=== PATIENT | female | born 1965 | race Caucasian/White ===

== ENCOUNTER 2017-12-08 07:19 | Day surgery (SDC) | payer BC ==
[~2017-12-08 07:19] MED LIST: Bupivacaine 0.5% 30 ML SDV ONE; Heparin Sodium 100 Units/ML 3 ML Syringe ONE; Iopamidol 408 MG/ML 50 ML SDV ONE; Lactated Ringers 1,000 ML IV SCH; Lidocaine 1% 20 ML MDV ONE; Sodium Chloride 0.9% 10 ML Syringe FLUSH PRN; Sodium Chloride 0.9% 2.5 ML Syringe FLUSH PRN; ceFAZolin 2 GM in Premix Bag 1 BAG IV ONE
[2017-12-08] MEDS ORDERED: Midazolam 1 MG/ML 2 ML SDV ONE (07:27)
[2017-12-08] MEDS ORDERED: fentaNYL 100 MCG/2 ML SDV ONE (07:27)
[2017-12-08] MEDS ORDERED: Propofol 200 MG/20 ML SDV ONE (07:28)
[2017-12-08] MEDS ORDERED: Ondansetron 4 MG/2 ML SDV ONE (07:29)
[2017-12-08] MEDS ORDERED: Lidocaine 1% 20 ML MDV ONE (07:38)
--- NOTE | 2017-12-08 07:47 | PCM.PREANE ---
Preanesthetic Assessment - Anesthesia/Transfusion/Family Hx Anesthesia History: Prior Anesthesia Without Reaction Family History of Anesthesia Reaction: No Transfusion History: No Prior Transfusion(s) - Review of Systems General: No Symptoms Pulmonary: No Symptoms Cardiovascular: No Symptoms Gastrointestinal: No Symptoms Neurological: No Symptoms Other: Reports: None - Physical Assessment Height: 1.6 m Weight: 85.275 kg ASA Class: 2 Mental Status: Alert & Oriented x3 Airway Class: Mallampati = 2 Dentition: Reports: Normal Dentition (multiple veneers upper front), [place](s) ( multiple upper and lower (back side)) Thyro-Mental Finger Breadths: 2 Mouth Opening Finger Breadths: 3 ROM/Head Extension: Full Lungs: Clear to Auscultation, Normal Respiratory Effort Cardiovascular: Regular Rate, Regular Rhythm - Allergies Allergies/Adverse Reactions: Allergies Allergy/AdvReac Type Severity Reaction Status Date / Time azithromycin [From Zithromax] Allergy Dizziness Verified 12/03/17 08:26 - Blood Blood Available: No - Anesthesia Plan Pre-Op Medication Ordered: None - Acknowledgements Anesthesia Type Planned: General Anesthesia Pt an Appropriate Candidate for the Planned Anesthesia: Yes Alternatives and Risks of Anesthesia Discussed w Pt/Guardian: Yes Pt/Guardian Understands and Agrees with Anesthesia Plan: Yes PreAnesthesia Questionnaire HEENT History: Reports: Other (See Below) Other HEENT History: wears glasses/contacts Cardiovascular History: Reports: Hypertension Gastrointestinal History: Reports: GERD Genitourinary History: Reports: None Psychiatric History: Reports: Depression Endocrine/Metabolic History: Reports: Obesity/BMI 30+ Oncologic (Cancer) History: Reports: Breast - Past Surgical History Head Surgeries/Procedures: Reports: None Female Surgical History: Reports: Breast Biopsy Other Female Surgeries/Procedures: right breast lumpectomy with axillary lymph node biopsy (one node positive) - SUBSTANCE USE Smoking Status *Q: Never Smoker Recreational Drug Use History: No - HOME MEDS Home Medications: Home Meds Famotidine 40 mg PO BEDTIME 12/03/17 [History] Fluticasone Propionate [Flonase Allergy Relief] 1 spray NASBOTH ASDIRECTED PRN 12/03/17 [History] Ibuprofen 1 tab PO ASDIRECTED PRN 12/03/17 [History] Losartan Potassium 50 mg PO DAILY 12/03/17 [History] Multivitamin [Multivitamins] 1 tab PO DAILY 12/03/17 [History] [place]-3/DHA/Epa/Fish Oil [[place]-3 Fish Oil Softgel] 1 tab PO DAILY 12/03/17 [ History] - CURRENT (IN HOUSE) MEDS Current Meds: Current Medications Lactated Ringer's (Ringers, Lactated) 1,000 mls @ 125 mls/hr IV ASDIRECTED KATELIN Sodium Chloride (Saline Flush) 10 ml FLUSH ASDIRECTED PRN PRN Reason: Keep Vein Open Sodium Chloride (Saline Flush) 2.5 ml FLUSH ASDIRECTED PRN PRN Reason: Keep Vein Open Discontinued Medications Bupivacaine HCl (Marcaine 0.5%) Confirm Administered Dose 30 ml .ROUTE .STK-MED ONE Stop: 12/08/17 07:14 Fentanyl (Sublimaze) Confirm Administered Dose 100 mcg .ROUTE .STK-MED ONE Stop: 12/08/17 07:28 Heparin Sodium (Porcine) (Heparin Lock Flush 100 Units/Ml) Confirm Administered Dose 900 unit .ROUTE .STK-MED ONE Stop: 12/08/17 07:15 Cefazolin Sodium/Dextrose 2 gm (/ Premix) 50 mls @ 100 mls/hr IV ONETIME ONE Stop: 12/07/17 08:02 Iopamidol (Isovue-200 (41%)) Confirm Administered Dose 50 ml .ROUTE .STK-MED ONE Stop: 12/08/17 07:15 Lidocaine HCl (Xylocaine 1%) Confirm Administered Dose 20 ml .ROUTE .STK-MED ONE Stop: 12/08/17 07:15 Lidocaine HCl (Xylocaine 1%) Confirm Administered Dose 20 ml .ROUTE .STK-MED ONE Stop: 12/08/17 07:39 Midazolam HCl (Versed 1 Mg/Ml) Confirm Administered Dose 2 mg .ROUTE .STK-MED ONE Stop: 12/08/17 07:28 Ondansetron HCl (Zofran) Confirm Administered Dose 4 mg .ROUTE .STK-MED ONE Stop: 12/08/17 07:30 Propofol (Diprivan 20 Ml) Confirm Administered Dose 200 mg .ROUTE .STK-MED ONE Stop: 12/08/17 07:29
--- NOTE | 2017-12-08 08:15 | PCM.OPNOTE ---
- General Post-Op/Procedure Note Date of Surgery/Procedure: 12/08/17 Operative Procedure(s): Port a cath placement- CANCELED Findings: Cellulitis extended from the patient's previous lumpectomy scar on the right breast. Case was cancelled Pre Op Diagnosis: Breast cancer Post-Op Diagnosis: same Anesthesia Technique: General LMA Primary Surgeon: Janelle Montez Condition: Good
[2017-12-08] MEDS ORDERED: Piperacillin/Tazobactam 3.375 GM in Sodium Chloride 0.9% 50 ML IV ONE (08:20)
--- NOTE | 2017-12-08 08:40 | OR ---
SURGEON: JIMI HERREAR MD DATE OF PROCEDURE: 12/08/2017 PREOPERATIVE DIAGNOSIS: Breast cancer. POSTOPERATIVE DIAGNOSIS: Breast cancer. PROCEDURE PERFORMED: Canceled Port-A-Cath placement. INDICATIONS: The patient is a 52-year-old female with right-sided breast cancer. She recently underwent a right-sided lumpectomy and sentinel lymph node biopsy at an outside hospital. She presents for Port-A-Cath placement. We discussed the procedure, expected perioperative course, and risks including bleeding, infection, damage to surrounding structures. The patient verbalized understanding and wishes to proceed. PROCEDURE IN DETAIL: The patient was brought into the OR and placed on the OR table in supine position. A time-out was completed verifying the patient's name, age, date of , allergies, and procedure to be performed. General LMA anesthesia was induced. The patient's arms were tucked at the sides and a shoulder roll was placed under the shoulders. The patient's gown was then pulled down to begin prepping and draping; however, one of the circulating nurses noted the right breast to be inflamed. Upon further inspection, the patient was noted to have cellulitis extending from her lumpectomy site. The decision was made to cancel the procedure. 3.375 mg of IV Zosyn was ordered. CBC was drawn. The patient was then awoken and taken to PACU in stable condition. IVELISSE CHENG /[id number] [id number]
--- NOTE | 2017-12-08 08:46 | PCM.POSTAN ---
POST ANESTHESIA ASSESSMENT - MENTAL STATUS Mental Status: Alert, Oriented - RESPIRATORY Respiratory Status: Respiratory Rate WNL, Airway Patent, O2 Saturation Stable - CARDIOVASCULAR CV Status: Pulse Rate WNL, Blood Pressure Stable - GASTROINTESTINAL GI Status: No Symptoms - PAIN Pain Score: 0 - POST OP HYDRATION Hydration Status: Adequate & Stable - OBSERVATIONS Free Text/Narrative:: surgery canceled due to significant breast infection. No problems with anesthesia
--- NOTE | 2017-12-08 09:49 | PCM48HPAN ---
Post Anesthesia Note - EVALUATION WITHIN 48HRS OF ANESTHETIC Patient Participated in Evaluation: Yes Respiratory Function Stable: Yes Airway Patent: Yes Cardiovascular Function Stable: Yes Hydration Status Stable: Yes Pain Control Satisfactory: Yes Nausea and Vomiting Control Satisfactory: Yes Mental Status Recovered: Yes Resp Rate: 8 - COMMENTS/OBSERVATIONS Free Text/Narrative:: no anesthesia problems
== END 2017-12-08 09:30 | disposition home or self-care (01) ==
LOC: MW.SDS 07:19
PROVIDERS: ATTEND Surgery
DX: C50.911 Malignant neoplasm of unspecified site of right female breast (principal); N61.0 Mastitis without abscess; I10 Essential (primary) hypertension; K21.9 Gastro-esophageal reflux disease without esophagitis; F32.9 Major depressive disorder, single episode, unspecified; E66.9 Obesity, unspecified; Z68.33 Body mass index [BMI] 33.0-33.9, adult; Z79.899 Other long term (current) drug therapy; Z88.1 Allergy status to other antibiotic agents; Z90.11 Acquired absence of right breast and nipple; Z53.09 Procedure and treatment not carried out because of other contraindication
CPT/HCPCS: 36415; 36561; 85025; J1642; J2250; J2405; J2543; J3010; J7050; J7120; J2704; Q9966

== ENCOUNTER 2017-12-15 10:31 | Day surgery (SDC) | payer BC ==
[~2017-12-15 10:31] MED LIST changes: +Bupivacaine 0.5% 10 ML SDV ONE; -Bupivacaine 0.5% 30 ML SDV ONE
--- NOTE | 2017-12-15 10:58 | PCM.PREANE ---
Preanesthetic Assessment - Anesthesia/Transfusion/Family Hx Anesthesia History: Prior Anesthesia Without Reaction Family History of Anesthesia Reaction: No Transfusion History: No Prior Transfusion(s) Intubation History: Unknown - Review of Systems General: No Symptoms Pulmonary: No Symptoms Cardiovascular: No Symptoms Gastrointestinal: No Symptoms Neurological: No Symptoms Other: Reports: None - Physical Assessment Height: 1.6 m Weight: 85.275 kg ASA Class: 2 Mental Status: Alert & Oriented x3 Airway Class: Mallampati = 2 Dentition: Reports: Normal Dentition (veneers on front upper teeth), [place](s) ( multiple upper and lower) Thyro-Mental Finger Breadths: 3 Mouth Opening Finger Breadths: 3 ROM/Head Extension: Full Lungs: Clear to Auscultation, Normal Respiratory Effort Cardiovascular: Regular Rate, Regular Rhythm - Allergies Allergies/Adverse Reactions: Allergies Allergy/AdvReac Type Severity Reaction Status Date / Time azithromycin [From Zithromax] Allergy Dizziness Verified 12/11/17 10:03 - Blood Blood Available: No - Anesthesia Plan Pre-Op Medication Ordered: None - Acknowledgements Anesthesia Type Planned: General Anesthesia Pt an Appropriate Candidate for the Planned Anesthesia: Yes Alternatives and Risks of Anesthesia Discussed w Pt/Guardian: Yes Pt/Guardian Understands and Agrees with Anesthesia Plan: Yes PreAnesthesia Questionnaire HEENT History: Reports: Other (See Below) Other HEENT History: wears glasses/contacts Cardiovascular History: Reports: Hypertension Gastrointestinal History: Reports: GERD Genitourinary History: Reports: None 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: Psychiatric History: Reports: Depression Endocrine/Metabolic History: Reports: Obesity/BMI 30+ Oncologic (Cancer) History: Reports: Breast - Past Surgical History Head Surgeries/Procedures: Reports: None Female Surgical History: Reports: Breast Biopsy Other Female Surgeries/Procedures: right breast lumpectomy with axillary lymph node biopsy (one node positive) - SUBSTANCE USE Smoking Status *Q: Never Smoker Recreational Drug Use History: No - HOME MEDS Home Medications: Home Meds Famotidine 40 mg PO BEDTIME 12/03/17 [History] Fluticasone Propionate [Flonase Allergy Relief] 1 spray NASBOTH ASDIRECTED PRN 12/03/17 [History] Ibuprofen 1 tab PO ASDIRECTED PRN 12/03/17 [History] Losartan Potassium 50 mg PO DAILY 12/03/17 [History] Multivitamin [Multivitamins] 1 tab PO DAILY 12/03/17 [History] [place]-3/DHA/Epa/Fish Oil [[place]-3 Fish Oil Softgel] 1 tab PO DAILY 12/03/17 [ History] - CURRENT (IN HOUSE) MEDS Current Meds: Current Medications Lactated Ringer's (Ringers, Lactated) 1,000 mls @ 125 mls/hr IV ASDIRECTED KATELIN Sodium Chloride (Saline Flush) 10 ml FLUSH ASDIRECTED PRN PRN Reason: Keep Vein Open Sodium Chloride (Saline Flush) 2.5 ml FLUSH ASDIRECTED PRN PRN Reason: Keep Vein Open Discontinued Medications Bupivacaine HCl (Sensorcaine-Mpf 0.5%) Confirm Administered Dose 20 ml .ROUTE .STK-MED ONE Stop: 12/15/17 07:44 Heparin Sodium (Porcine) (Heparin Lock Flush 100 Units/Ml) Confirm Administered Dose 900 unit .ROUTE .STK-MED ONE Stop: 12/15/17 07:44 Cefazolin Sodium/Dextrose 2 gm (/ Premix) 50 mls @ 100 mls/hr IV ONETIME ONE Stop: 12/11/17 11:03 Iopamidol (Isovue-200 (41%)) Confirm Administered Dose 50 ml .ROUTE .STK-MED ONE Stop: 12/15/17 07:45 Lidocaine HCl (Xylocaine 1%) Confirm Administered Dose 20 ml .ROUTE .STK-MED ONE Stop: 12/15/17 07:45
[2017-12-15] MEDS ORDERED: Ondansetron 4 MG/2 ML SDV ONE (11:14)
[2017-12-15] MEDS ORDERED: Lidocaine 2% 5 ML SDV ONE (11:14)
[2017-12-15] MEDS ORDERED: Propofol 200 MG/20 ML SDV ONE (11:15)
[2017-12-15] MEDS ORDERED: fentaNYL 100 MCG/2 ML SDV IVPUSH PRN ×2 (12:12→12:47)
--- NOTE | 2017-12-15 12:48 | PCM.OPNOTE ---
- General Post-Op/Procedure Note Date of Surgery/Procedure: 12/15/17 Operative Procedure(s): Left internal jugular port a cath placement Findings: Left internal jugular port a cath placement Pre Op Diagnosis: Breast cancer Post-Op Diagnosis: same Anesthesia Technique: General LMA Primary Surgeon: Janelle Montez Fluid Replacement, Intraop: 800 EBL in mLs: 10 Condition: Good
--- NOTE | 2017-12-15 13:12 | PCM.POSTAN ---
POST ANESTHESIA ASSESSMENT - MENTAL STATUS Mental Status: Alert, Oriented - RESPIRATORY Respiratory Status: Respiratory Rate WNL, Airway Patent, O2 Saturation Stable - CARDIOVASCULAR CV Status: Pulse Rate WNL, Blood Pressure Stable - GASTROINTESTINAL GI Status: No Symptoms - PAIN Pain Score: 3 - POST OP HYDRATION Hydration Status: Adequate & Stable - OBSERVATIONS Free Text/Narrative:: no anesthesia problems
--- NOTE | 2017-12-15 13:19 | OR ---
SURGEON: JIMI HERRERA MD DATE OF PROCEDURE: 12/15/2017 PREOPERATIVE DIAGNOSIS: Breast cancer. POSTOPERATIVE DIAGNOSIS: Breast cancer. PROCEDURE PERFORMED: Left internal jugular Port-A-Cath placement. ANESTHESIA: MAC. FLUIDS: 800 mL of crystalloid. ESTIMATED BLOOD LOSS: 10 mL. FINDINGS: Left internal jugular Port-A-Cath placement. COMPLICATIONS: None. INDICATIONS: The patient is a 52-year-old female, recently diagnosed with breast cancer. She came to see me for placement of a Port-A-Cath. First time when I took her back to the OR, there was a questionable area of cellulitis on her right breast. The case was canceled. She was placed on antibiotics. Followup in clinic revealed that she had a hematoma or seroma in the right axilla. She continued the antibiotic course and today, has no signs or symptoms of infection. The patient and I discussed the Port-A-Cath procedure, expected perioperative course, and risks including bleeding, infection, or damage to surrounding structures including hemothorax and pneumothorax. The patient verbalized understanding and wishes to proceed. PROCEDURE IN DETAIL: The patient was brought into the OR and placed on the OR table in supine position. A time-out was completed verifying the patient's name, age, date of , allergies, and procedure to be performed. General LMA anesthesia was induced. A shoulder roll was placed under the patient's shoulders and both arms were tucked at the sides. A bedside ultrasound was not working, so I had Radiology techs bringing an ultrasound from their department for identification of the left internal jugular vein. The vascular anatomy was identified and an image was taken. The neck was then prepped and draped in usual standard fashion. The patient was placed into Trendelenburg position. The ultrasound probe was used to reidentify the left internal jugular vein and left carotid vein. The area overlying these vessels was anesthetized with 1% lidocaine plain. Using a sterile ultrasound probe, I then placed a guide needle into the left internal jugular vein under direct visualization. A urrutia of venous appearing blood was obtained. A guidewire was placed down the guide needle into the internal jugular vein and this was met with no resistance. The guide needle was removed and the C-arm was brought in. X-ray confirmed placement of the guidewire into the superior vena cava. I then turned my attention to the left anterior chest wall. A 3 to 4 cm incision was made using a 15 blade over an area 2 fingerbreadths below the left clavicle laterally. The area was anesthetized with 0.5% Marcaine plain as well as 1% lidocaine. Cautery was used to create a subcutaneous pocket. A tunneling device was used to tunnel the catheter tubing from the Port-A-Cath site on the left anterior chest wall up to the insertion point of my guidewire. The C-arm was brought in again and I dilated over the guidewire under fluoroscopic guidance. The guidewire and dilator were removed leaving a vascular sheath in place. The catheter tubing was placed down the sheath into the chest. The vascular sheath was then removed leaving the catheter tubing in place. Fluoroscopy was used to pull back the catheter tubing, so that the tip was located in the SVC. An x-ray towards the guidewire insertion site was taken and saved. The catheter tubing flushed easily. It was trimmed to size and sit on the Port-A-Cath device. The Port-A- Cath flushed easily with good return of venous blood. It was locked with 3 mL of heparinized saline. The port was then secured to the chest wall using interrupted 3-0 Vicryl sutures. The subcutaneous port site in the anterior left chest wall was closed with interrupted 3-0 Vicryl in the subcutaneous fat layer and a running 4-0 Monocryl stitch in the skin. An interrupted 4-0 Monocryl stitch was used to close the insertion site on the left lower neck. Steri- Strips and sterile dressings were applied. The patient tolerated the procedure well and was taken to PACU in stable condition. IVELISSE CHENG /[id number]
--- NOTE | 2017-12-15 13:57 | PCM48HPAN ---
Post Anesthesia Note - EVALUATION WITHIN 48HRS OF ANESTHETIC Vital Signs in Normal Range: Yes Patient Participated in Evaluation: Yes Respiratory Function Stable: Yes Airway Patent: Yes Cardiovascular Function Stable: Yes Hydration Status Stable: Yes Pain Control Satisfactory: Yes Nausea and Vomiting Control Satisfactory: Yes Mental Status Recovered: Yes Resp Rate: 12
[2017-12-15] MEDS ORDERED: Acetaminophen/oxyCODONE 325-5 MG Tab PO PRN (14:05)
[2017-12-15] MEDS ORDERED: Acetaminophen/oxyCODONE 325-5 MG Tab ONE (14:13)
--- NOTE | 2017-12-15 15:33 | CR ---
EXAMINATION: Two-view chest (PA and Lateral views). HISTORY: Port-A-Cath placement. FINDINGS: The trachea is midline. The cardiomediastinal silhouette is within normal limits. No pulmonary infilt rates, effusions or pneumothorax. Left-sided cy catheter is noted with tip in good position in the distal SVC. Osseous structures appear unremarkable. IMPRESSION: No acute cardiopulmonary process.
--- NOTE | 2017-12-15 15:33 | CR ---
Procedure all fluoroscopy 60.3 seconds of chemotherapy to fluoroscopic time was utilized for operative procedure. Impression: Procedural fluoroscopy as above
--- NOTE | 2017-12-15 16:37 | US ---
EXAMINATION: Vascular access HISTORY: Post placement COMPARISON: None TECHNIQUE: Grayscale imaging obtained within the region of the jugular vein.
== END 2017-12-15 14:45 | disposition home or self-care (01) ==
LOC: MW.SDS 10:31
PROVIDERS: ATTEND Surgery
DX: C50.911 Malignant neoplasm of unspecified site of right female breast (principal); I10 Essential (primary) hypertension; E66.9 Obesity, unspecified; K21.9 Gastro-esophageal reflux disease without esophagitis; Z79.899 Other long term (current) drug therapy; Z88.1 Allergy status to other antibiotic agents; Z90.11 Acquired absence of right breast and nipple
CPT/HCPCS: 36561; 71045; 76000; 76937; A9270; C1788; J1642; J2405; J7120; J2704; Q9966

== ENCOUNTER 2018-01-21 12:15 | Inpatient (IN) | payer BC ==
[2018-01-21] MEDS ORDERED: Acetaminophen 325 MG Tab PO PRN (12:52)
[2018-01-21] MEDS ORDERED: Ondansetron 4 MG/2 ML SDV IVPUSH PRN (12:52)
[2018-01-21] MEDS ORDERED: Morphine 2 MG/ML Syringe IVPUSH PRN (12:52)
[2018-01-21] MEDS: Sodium Chloride 0.9% 1,000 ML IV SCH (13:20)
[2018-01-21] MEDS: Piperacillin/Tazobactam 4.5 GM in Sodium Chloride 0.9% 100 ML IV SCH ×2 (13:37→18:23)
--- NOTE | 2018-01-21 14:02 | PCM.HP ---
H&P History of Present Illness - General Date of Service: 01/21/18 Admit Problem/Dx: Admission Diagnosis/Problem Admission Diagnosis/Problem Cellulitis Source of Information: Patient, Old Records History Limitations: Reports: No Limitations - History of Present Illness Initial Comments - Free Text/Narative: This 52 year old female with recently diagnose breast cancer, HTN, and GERD presented to Oncology today for treatment. She was seen by Dr Montez while in oncology due to upcoming appointment to see her tomorrow regarding R axilla redness and possible abscess. She reports in this area is where she had SLN removed and a surgical drain was in place after her lumpectomy and SLN biopsy. Drain was removed November 25 with PCP, Dr Kaur. Since then she has off and on redness to this area. End of November she was scheduled for port placement with Dr Montez, but erythema was noticed to R breast and axilla and port placement was cancelled. She returned December 15 and looked improved so port was placed which went went. She then started feeling ill again January 08 or so and saw her PCP closer to the end of December.. She noticed some redness and tenderness to R axilla again and was placed on Clindamycin, she has take 3 days or so of treatment but redness, tenderness and warmth have all increased. She also reports fevers, chills, generalized malaise since last week. She has been alternating Tylenol and Advil all week to help with fevers. She also reports dry hacking cough, which is a normal for her. She denies productive cough. Reports she gets this cough multiple times a year and it can last months, they have felt it was linked to allergies but never fully diagnosed as such. She also reports increased dizziness and as if the world is tilted the last couple days along with generalized weakness. No sore throat or sinus congestion. Ears feel a little full, but no pain. She denies any other neurological deficits. No neck pain or back pain. She denies urinary symptoms or abdominal pain and no black or bloody BMs. She denies tobacco use and very rare alcohol use. Chemotherapy was started December 26 and last dose was January 06. She received Adriamycin with Cyclophosphamide and also received Neulasta post chemotherapy. In Oncology today, leukocytosis was 15,000 on January 19 it was 22,000. Hgb 11.9. BUN 11, Cr 1.1. She was directed to hospital for direct admission after consultation with Dr Montez for cellulitis and abscess of R axilla. PCP, Dr Kaur. - Related Data Allergies/Adverse Reactions: Allergies Allergy/AdvReac Type Severity Reaction Status Date / Time azithromycin [From Zithromax] Allergy Dizziness Verified 12/11/17 10:03 Home Medications: Home Meds Famotidine 40 mg PO BEDTIME 12/03/17 [History] Fluticasone Propionate [Flonase Allergy Relief] 1 spray NASBOTH ASDIRECTED PRN 12/03/17 [History] Losartan Potassium 50 mg PO DAILY 12/03/17 [History] Multivitamin [Multivitamins] 1 tab PO DAILY 12/03/17 [History] [place]-3/DHA/Epa/Fish Oil [[place]-3 Fish Oil Softgel] 1 tab PO DAILY 12/03/17 [ History] Past Medical History HEENT History: Reports: Other (See Below) Other HEENT History: wears glasses/contacts Cardiovascular History: Reports: Hypertension. Denies: Afib, Blood Clots/VTE/ DVT, [place], SOB on Exertion, Stents Respiratory History: Reports: Other (See Below) (chronic cough, intermittently.) Gastrointestinal History: Reports: GERD Genitourinary History: Reports: None. 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 History: Denies: CVA, Headaches, Chronic, Seizure, TIA Psychiatric History: Reports: Depression Endocrine/Metabolic History: Reports: Obesity/BMI 30+ Oncologic (Cancer) History: Reports: Breast - Past Surgical History Head Surgeries/Procedures: Reports: None Female Surgical History: Reports: Breast Biopsy Other Female Surgeries/Procedures: right breast lumpectomy with axillary lymph node biopsy (one node positive) Social & Family History - Tobacco Use Smoking Status *Q: Never Smoker - Alcohol Use Alcohol Use History: No Alcohol Use Frequency: Rarely - Living Situation & Occupation Living situation: Reports: H&P Review of Systems - Review of Systems: Review Of Systems: See Below General: Reports: Fever, Chills, Malaise, Weakness, Fatigue HEENT: Reports: Post Nasal Drip. Denies: Ear Pain (some fullness), Headaches, Sinus Congestion, Sore Throat Pulmonary: Reports: Cough. Denies: Shortness of Breath, Wheezing, Sputum, Hemoptysis Cardiovascular: Reports: No Symptoms. Denies: Chest Pain, Orthopnea, Edema Gastrointestinal: Reports: No Symptoms. Denies: Abdominal Pain, Black Stool, Bloody Stool, Flatus, Nausea, Vomiting Genitourinary: Reports: No Symptoms. Denies: Dysuria, Frequency, Burning, Pain Skin: Reports: Erythema (R axilla with pain.) Psychiatric: Reports: No Symptoms Neurological: Reports: No Symptoms Hematologic/Lymphatic: Reports: No Symptoms Immunologic: Reports: No Symptoms Exam - Exam Exam: See Below - Exam General: Alert, Oriented, Cooperative HEENT: Conjunctiva Clear, Hearing Intact, Mucosa Moist & Stuckey, Posterior Pharynx Clear, Pupils Reactive Neck: Supple, Trachea Midline, Full Range of Motion. No: Lymphadenopathy Lungs: Clear to Auscultation, Normal Respiratory Effort, Other (dry hacking cough noted.) Cardiovascular: Regular Rate, Regular Rhythm, Normal S1, Normal S2. No: Tachycardia, Systolic Murmur GI/Abdominal Exam: Normal Bowel Sounds, Soft, Non-Tender Back Exam: Normal Inspection, Full Range of Motion Extremities: Normal Inspection, Normal Range of Motion, Non-Tender, No Pedal Edema Skin: Other (Erythema noted to R axilla with fluctuance area. Induration noted as well, approximately 4 x 2 in. Very tender to palpation. No drainage noted. Old site of surgical drain. ) Neuro Extensive - Mental Status: Alert, Oriented x3 Neuro Extensive - Motor, Sensory, Reflexes: CN II-XII Intact Psychiatric: Alert, Normal Affect, Normal Mood - Problem List (1) Cellulitis SNOMED Code(s): 644894092 ICD Code: L03.90 - CELLULITIS, UNSPECIFIED Status: Acute Current Visit: No Qualifiers: Site of cellulitis: extremity Site of cellulitis of extremity: axilla Laterality: right Qualified Code(s): L03.111 - Cellulitis of right axilla (2) Abscess SNOMED Code(s): 594358946 ICD Code: L02.91 - CUTANEOUS ABSCESS, UNSPECIFIED Status: Acute Current Visit: Yes (3) Failure of outpatient treatment SNOMED Code(s): 908241750 ICD Code: Z78.9 - OTHER SPECIFIED HEALTH STATUS Status: Acute Current Visit: Yes (4) Vertigo SNOMED Code(s): 233412245 ICD Code: R42 - DIZZINESS AND GIDDINESS Status: Acute Current Visit: Yes (5) Generalized weakness SNOMED Code(s): 38649402 ICD Code: R53.1 - WEAKNESS Status: Acute Current Visit: Yes (6) HTN (hypertension) SNOMED Code(s): 52845729 ICD Code: I10 - ESSENTIAL (PRIMARY) HYPERTENSION Status: Chronic Current Visit: Yes Qualifiers: Hypertension type: essential hypertension Qualified Code(s): I10 - Essential (primary) hypertension (7) GERD (gastroesophageal reflux disease) SNOMED Code(s): 951029503 ICD Code: K21.9 - GASTRO-ESOPHAGEAL REFLUX DISEASE WITHOUT ESOPHAGITIS Status: Chronic Current Visit: Yes Qualifiers: Esophagitis presence: esophagitis presence not specified Qualified Code(s) : K21.9 - Gastro-esophageal reflux disease without esophagitis (8) Breast cancer SNOMED Code(s): 185993231 ICD Code: C50.919 - MALIGNANT NEOPLASM OF UNSP SITE OF UNSPECIFIED FEMALE BREAST Status: Chronic Current Visit: No Qualifiers: Breast location: upper outer quadrant of breast Estrogen receptor status: unspecified Patient sex: female Laterality: right Qualified Code(s): C50.411 - Malignant neoplasm of upper-outer quadrant of right female breast Problem List Initiated/Reviewed/Updated: Yes Orders Last 24hrs: Active Orders 24 hr Category Date Time Status Patient Status [ADT] Routine ADT 01/21/18 12:52 Active EKG Documentation Completion [RC] URGENT Care 01/21/18 12:55 Active Intake and Output [RC] QSHIFT Care 01/21/18 12:53 Active Notify Provider Consults [RC] ASDIRECTED Care 01/21/18 12:54 Active Oxygen Therapy [RC] PRN Care 01/21/18 12:52 Active Up With Assistance [RC] ASDIRECTED Care 01/21/18 12:52 Active VTE/DVT Education [RC] PER UNIT ROUTINE Care 01/21/18 12:52 Active Vital Signs [RC] Q4H Care 01/21/18 12:52 Active Consult to Physician [CONS] Routine Cons 01/21/18 12:52 Active Regular Diet [DIET] Diet 01/21/18 Lunch Active Brain w wo Cont [MR] Routine Exams 01/21/18 13:37 Ordered Chest 1V Frontal [CR] Routine Exams 01/21/18 12:55 Ordered BMP [BASIC METABOLIC PANEL,BMP] [CHEM] AM Lab 01/22/18 05:11 Ordered BMP [BASIC METABOLIC PANEL,BMP] [CHEM] AM Lab 01/23/18 05:11 Ordered BMP [BASIC METABOLIC PANEL,BMP] [CHEM] AM Lab 01/24/18 05:11 Ordered CBC WITH AUTO DIFF [HEME] AM Lab 01/22/18 05:11 Ordered CBC WITH AUTO DIFF [HEME] AM Lab 01/23/18 05:11 Ordered CBC WITH AUTO DIFF [HEME] AM Lab 01/24/18 05:11 Ordered CULTURE BLOOD [BC] Stat Lab 01/21/18 13:34 Received CULTURE BLOOD [BC] Stat Lab 01/21/18 13:38 Received Acetaminophen [Tylenol] Med 01/21/18 12:52 Active 650 mg PO Q4H PRN Morphine Med 01/21/18 12:52 Active 2 mg IVPUSH Q2H PRN Ondansetron [Zofran] Med 01/21/18 12:52 Active 4 mg IVPUSH Q4H PRN Piperacillin/Tazobactam [Piperacil-Tazobact] 4.5 gm Med 01/21/18 13:00 Active Sodium Chloride 0.9% [Normal Saline] 100 ml IV Q6H Sodium Chloride 0.9% [Normal Saline] 1,000 ml Med 01/21/18 13:00 Active IV ASDIRECTED Vancomycin Pharmacy to Dose [Pharmacy to Dose - Med 01/21/18 13:00 Ordered Vancomycin] 1 dose .XX ASDIRECTED Blood Culture x2 Reflex Set [OM.PC] Stat Oth 01/21/18 12:52 Ordered Sequential Compression Device [OM.PC] Per Unit Routine Oth 01/21/18 12:53 Ordered Resuscitation Status Routine Resus Stat 01/21/18 12:52 Ordered Medication Orders Acetaminophen (Tylenol) 650 mg PO Q4H PRN PRN Reason: Pain (Mild 1-3)/fever Sodium Chloride (Normal Saline) 1,000 mls @ 125 mls/hr IV ASDIRECTED KATELIN Last Admin: 01/21/18 13:20 Dose: 125 mls/hr Piperacillin Sod/Tazobactam (Sod 4.5 gm/ Sodium Chloride) 100 mls @ 100 mls/hr IV Q6H KATELIN Last Admin: 01/21/18 13:37 Dose: 100 mls/hr Morphine Sulfate (Morphine) 2 mg IVPUSH Q2H PRN PRN Reason: Pain (severe 7-10) Stop: 01/22/18 12:53 Ondansetron HCl (Zofran) 4 mg IVPUSH Q4H PRN PRN Reason: Nausea Vancomycin HCl (Pharmacy To Dose - Vancomycin) 1 dose .XX ASDIRECTED [facility] Assessment/Plan Comment:: This 52 year old female admitted with cellulitis with abscess to R axilla with vertigo and generalized weakness 1. Cellulitis and abscess to R axilla: Failed outpatient management with Clindamycin. Will stop this and treat with Vancomycin and Zosyn for now. Obtain BC, one from port and one from peripheral site. Will give some IVFs overnight since she will be going to OR tomorrow afternoon for I&D with Dr Montez. Will give 1 L NS bolus now. 2. Vertigo: Could be related to acute illness and or allergies with dry hacking cough and post nasal drip. Oncology recommended brain MRI with and without contrast. Will obtain this afternoon. may consider Meclizine after MRI results reviewed. 3. HTN: Monitor. Continue Losartan. ECHO reviewed from November 2017, WNL. EKG SR, rates 70s. 4. Cough: Dry hacking, will order Tessalon perles PRN. CXR negative. 5. GERD: stable. Continue PPI VTE prophylaxis: SCDs for now. post-operatively will order Lovenox due to her increased risk of VTE with malignancy Dispo: 2-3 days pending improvement. She is an appropriate risk for surgery.
[2018-01-21] MEDS ORDERED: Benzonatate 100 MG Cap PO PRN (14:20)
[2018-01-21] MEDS ORDERED: Codeine/guaiFENesin 100-10 MG/5 ML Syrup 5 ML Cup PO PRN (14:20)
--- NOTE | 2018-01-21 14:43 | PCM.CONS ---
H&P History of Present Illness - General Date of Service: 01/21/18 Admit Problem/Dx: Admission Diagnosis/Problem Admission Diagnosis/Problem Cellulitis Source of Information: Patient History Limitations: Reports: No Limitations - History of Present Illness Initial Comments - Free Text/Narative: Patient is a 52 year old female with breast cancer. She is currently undergoing chemotherapy. Prior to this she had a lumpectomy and sentinel lymph node biopsy in [place]. Her post operative course was complicated by a right axillary post operative hematoma. It had not been causing her any issues until this week when the area became red, painful, and hot. She was seen Thursday and had a WBC of 22K. She was placed on clindamycin. She came in today to the infusion center. Repeat labs showed a WBC of 15K. I was made aware that she was seeing me for an abscess tomorrow, but I met her in the infusion center to evaluate her today. She feels weak and dizzy. - Related Data Allergies/Adverse Reactions: Allergies Allergy/AdvReac Type Severity Reaction Status Date / Time azithromycin [From Zithromax] Allergy Dizziness Verified 12/11/17 10:03 Home Medications: Home Meds Famotidine 40 mg PO BEDTIME 12/03/17 [History] Fluticasone Propionate [Flonase Allergy Relief] 1 spray NASBOTH ASDIRECTED PRN 12/03/17 [History] Losartan Potassium 50 mg PO DAILY 12/03/17 [History] Multivitamin [Multivitamins] 1 tab PO DAILY 12/03/17 [History] [place]-3/DHA/Epa/Fish Oil [[place]-3 Fish Oil Softgel] 1 tab PO DAILY 12/03/17 [ History] Past Medical History HEENT History: Reports: Other (See Below) Other HEENT History: wears glasses/contacts Cardiovascular History: Reports: Hypertension. Denies: Afib, Blood Clots/VTE/ DVT, [place], SOB on Exertion, Stents Respiratory History: Reports: Other (See Below) (chronic cough, intermittently.) Gastrointestinal History: Reports: GERD Genitourinary History: Reports: None. 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: Denies: CVA, Headaches, Chronic, Seizure, TIA Psychiatric History: Reports: Depression Endocrine/Metabolic History: Reports: Obesity/BMI 30+ Oncologic (Cancer) History: Reports: Breast - Past Surgical History Head Surgeries/Procedures: Reports: None Female Surgical History: Reports: Breast Biopsy Other Female Surgeries/Procedures: right breast lumpectomy with axillary lymph node biopsy (one node positive) Social & Family History - Tobacco Use Smoking Status *Q: Never Smoker - Living Situation & Occupation Living situation: Reports: H&P Review of Systems - Review of Systems: Review Of Systems: ROS reveals no pertinent complaints other than HPI. Exam - Exam Exam: See Below - Exam General: Alert, Oriented, Cooperative, Lethargic HEENT: Conjunctiva Clear, Mucosa Moist & [place], Posterior Pharynx Clear Neck: Trachea Midline Lungs: Normal Respiratory Effort Cardiovascular: Regular Rate GI/Abdominal Exam: Soft, No Distention Extremities: Other (5-6 cm area of erythema in the right axilla just below the inferior axillar hairline. It is tender, warm and flutuant in the center. ) Consult PN Assessment/Plan Procedures: Procedures BX BREAST 1ST LESION US IMAG (10/05/17) CHEMO IV INFUSION 1 HR (12/22/17) CHEMO IV PUSH ADDL DRUG (12/22/17) COMPLETE CBC W/AUTO DIFF WBC (12/22/17) COMPREHEN METABOLIC PANEL (12/22/17) DRAW BLOOD OFF VENOUS DEVICE (12/22/17) FLUOROSCOPY <1 HR PHYS/QHP (12/15/17) INSERT TUNNELED CV CATH (12/15/17) PERQ DEV BREAST 1ST US IMAG (10/05/17) ROUTINE VENIPUNCTURE (12/22/17) THER/PROPH/DIAG INJ SC/IM (12/22/17) TISSUE EXAM BY PATHOLOGIST (10/05/17) TX/PRO/DX INJ NEW DRUG ADDON (12/22/17) TX/PROPH/DG ADDL SEQ IV INF (12/22/17) US COMPL JOINT R-T W/IMG (12/11/17) US GUIDE VASCULAR ACCESS (12/15/17) X-RAY EXAM CHEST 1 VIEW (12/15/17) (1) Abscess SNOMED Code(s): 619393082 Code(s): L02.91 - CUTANEOUS ABSCESS, UNSPECIFIED Current Visit: Yes (2) Failure of outpatient treatment SNOMED Code(s): 398838630 Code(s): Z78.9 - OTHER SPECIFIED HEALTH STATUS Current Visit: Yes (3) Cellulitis SNOMED Code(s): 521522842 Code(s): L03.90 - CELLULITIS, UNSPECIFIED Current Visit: No Qualifiers: Site of cellulitis: extremity Site of cellulitis of extremity: axilla Laterality: right Qualified Code(s): L03.111 - Cellulitis of right axilla (4) Breast cancer SNOMED Code(s): 992897413 Code(s): C50.919 - MALIGNANT NEOPLASM OF UNSP SITE OF UNSPECIFIED FEMALE BREAST Current Visit: No Qualifiers: Breast location: upper outer quadrant of breast Estrogen receptor status: unspecified Patient sex: female Laterality: right Qualified Code(s): C50.411 - Malignant neoplasm of upper-outer quadrant of right female breast Problem List Initiated/Reviewed/Updated: Yes Plan: She will need to undergo a right axillary abscess incision and drainage. I explained the procedure and need for dressing changes afterwards. She appears weak and dehydrated today. Since she is undergoing chemotherapy, she was graciously admitted by the hospitalist team for IV antibiotics and fluid resuscitation. I will reassess her tomorrow, but she will likely undergo surgery tomorrow given this is in a sensitive area and is too large to drain bedside. We discussed the risks including bleeding, infection, or damage to surrounding structures. She verbalized understanding and wishes to proceed.
[2018-01-21] MEDS ORDERED: Sodium Chloride 0.9% 1,000 ML IV ONE (14:46)
[2018-01-21] MEDS ORDERED: Gadobenate Dimeglumine 529 MG/ML 20 ML SDV IVPUSH STA (15:06)
--- NOTE | 2018-01-21 15:16 | CR ---
EXAM DATE: 01/21/18 PATIENT'S AGE: 52 Patient: MARION ELIZONDO Facility: [place], [place] Site . Site : 1965 Study: XRay Chest [id number]/[id number] 2:03:32 PM Ordering Physician: Gama Jacobs Final Report: HISTORY: Preoperative exam, hypertension. FINDINGS: AP portable chest radiograph is compared with 14 Dec 2017. Stable left-sided Port-A-Cath in place with its tip in the mid to distal SVC. The cardiac silhouette is normal. Pulmonary vasculature is free of cephalization. No consolidation or pleural effusion is seen. IMPRESSION: No acute cardiopulmonary disease. Report was faxed as requested on the 21 January 2018 at 1406 hours. Dictated by Barbara Ocampo MD @ 01/21/2018 2:07:03 PM Dictated by: Barbara Ocampo MD @ 01/21/2018 14:07:12 (Electronic Signature) Report Signed by Proxy. KWESI
[2018-01-22] MEDS: Piperacillin/Tazobactam 4.5 GM in Sodium Chloride 0.9% 100 ML IV SCH ×4 (00:08→18:31)
[2018-01-22] MEDS: Sodium Chloride 0.9% 1,000 ML IV SCH (03:20)
--- NOTE | 2018-01-22 08:51 | PCM.PN ---
- General Info Date of Service: 01/22/18 Admission Dx/Problem (Free Text): Admission Diagnosis/Problem Admission Diagnosis/Problem Cellulitis with abscess to R axilla Subjective Update: Feeling better this morning, less dizzy and has been up per etelvina ambulating well. Pain to R axilla still and eager for surgery today to drain this. No chest pain or SOB. Cough is ok, no phlegm. No other concerns this morning. Functional Status: Reports: Pain Controlled, Tolerating Diet, Ambulating, Urinating - Review of Systems General: Reports: No Symptoms. Denies: Fever, Fatigue, Malaise HEENT: Denies: Ear Pain (fullness is nearly gone to L ear), Headaches, Sore Throat, Visual Changes Pulmonary: Reports: Cough. Denies: Shortness of Breath, Sputum, Hemoptysis, Wheezing Cardiovascular: Reports: No Symptoms. Denies: Chest Pain, Palpitations, Lightheadedness Gastrointestinal: Reports: No Symptoms. Denies: Abdominal Pain, Nausea, Vomiting Genitourinary: Reports: No Symptoms. Denies: Dysuria, Frequency, Burning Musculoskeletal: Reports: No Symptoms Skin: Reports: Other (Erythema to R axilla, scab slightly deroofed last night.) Neurological: Reports: No Symptoms. Denies: Dizziness, Headache, Difficulty Walking Psychiatric: Reports: No Symptoms - Patient Data Vitals - Most Recent: Last Vital Signs Temp 97 F 01/22/18 08:00 Pulse 79 01/22/18 08:00 Resp 18 01/22/18 08:00 BP 141/77 H 01/22/18 08:00 Pulse Ox 96 01/22/18 08:00 Weight - Most Recent: 80.5 kg I&O - Last 24 Hours: Intake & Output 01/21/18 01/22/18 01/22/18 22:59 06:59 14:59 Intake Total 1549 2520 100 Output Total 430 2500 Balance 1119 20 100 Lab Results Last 24 Hours: Laboratory Results - last 24 hr 01/22/18 01/22/18 Range/Units 05:18 05:18 WBC 12.80 H (4.0-11.0) K/uL RBC 3.66 L (4.30-5.90) M/uL Hgb 10.8 L (12.0-16.0) g/dL Hct 31.3 L (36.0-46.0) % MCV 85.5 (80.0-98.0) fL MCH 29.5 (27.0-32.0) pg MCHC 34.5 (31.0-37.0) g/dL RDW Std Deviation 42.0 (28.0-62.0) fl RDW Coeff of Odilon 14 (11.0-15.0) % Plt Count 239 (150-400) K/uL MPV 8.80 (7.40-12.00) fL Add Manual Diff YES Neutrophils % (Manual) 71 (48.0-80.0) % Band Neutrophils % 5 % Lymphocytes % (Manual) 20 (16.0-40.0) % Monocytes % (Manual) 3 (0.0-15.0) % Basophils % (Manual) 1 (0.0-1.5) % Nucleated RBC % 0.0 /100WBC Absolute Seg Neuts 9.1 H (1.4-5.7) Band Neutrophils # 0.6 Lymphocytes # (Manual) 2.6 H (0.6-2.4) Monocytes # (Manual) 0.4 (0.0-0.8) Basophils # (Manual) 0.1 (0.0-0.1) Nucleated RBCs # 0 K/uL Sodium 142 (136-145) mmol/L Potassium 3.7 (3.5-5.1) mmol/L Chloride 108 H (98-107) mmol/L Carbon Dioxide 25.6 (21.0-32.0) mmol/L BUN 8 (7.0-18.0) mg/dL Creatinine 1.2 H (0.6-1.0) mg/dL Est Cr Clr Drug Dosing 45.36 mL/min Estimated GFR (MDRD) 47.2 ml/min Glucose 103 (74-106) mg/dL Calcium 8.7 (8.5-10.1) mg/dL Med Orders - Current: Current Medications Acetaminophen (Tylenol) 650 mg PO Q4H PRN PRN Reason: Pain (Mild 1-3)/fever Benzonatate (Tessalon Perles) 100 mg PO TID PRN PRN Reason: Cough Last Admin: 01/21/18 16:02 Dose: 100 mg Guaifenesin/Codeine Phosphate (Robitussin Ac) 5 ml PO Q6H PRN PRN Reason: Cough Sodium Chloride (Normal Saline) 1,000 mls @ 125 mls/hr IV ASDIRECTED [facility] Last Admin: 01/22/18 03:20 Dose: 125 mls/hr Piperacillin Sod/Tazobactam (Sod 4.5 gm/ Sodium Chloride) 100 mls @ 100 mls/hr IV Q6H [facility] Last Admin: 01/22/18 06:12 Dose: 100 mls/hr Vancomycin HCl 1 gm/ Sodium (Chloride) 250 mls @ 166.667 mls/hr IV Q12H [facility] Last Admin: 01/22/18 03:20 Dose: 166.667 mls/hr Morphine Sulfate (Morphine) 2 mg IVPUSH Q2H PRN PRN Reason: Pain (severe 7-10) Stop: 01/22/18 12:53 Last Admin: 01/21/18 23:06 Dose: 2 mg Ondansetron HCl (Zofran) 4 mg IVPUSH Q4H PRN PRN Reason: Nausea Vancomycin HCl (Pharmacy To Dose - Vancomycin) 1 dose .XX ASDIRECTED [facility] Discontinued Medications Gadobenate Dimeglumine (Multihance) 20 ml IVPUSH ONETIME STA Stop: 01/21/18 15:07 Last Admin: 01/21/18 15:34 Dose: 16 ml Sodium Chloride (Normal Saline) 1,000 mls @ 999 mls/hr IV .Bolus ONE Stop: 01/21/18 15:46 Last Admin: 01/21/18 15:54 Dose: 999 mls/hr - Exam Quality Assessment: Central Line/PICC (PORT to L chest WNL, no ertyhema or pain) General: Alert, Oriented, Cooperative, No Acute Distress Neck: Supple Lungs: Clear to Auscultation, Normal Respiratory Effort. No: Decreased Breath Sounds Cardiovascular: Regular Rate, Regular Rhythm, No Murmurs. No: Tachycardia, Murmurs GI/Abdominal Exam: Normal Bowel Sounds, Soft, Non-Tender Extremities: Normal Range of Motion, Non-Tender Wound/Incisions: Drainage (scant serous drainge, scab deroofed last night, but no purulent drainage noted. Erythema mildly improved induration continues. ) Neurological: No New Focal Deficit Psy/Mental Status: Alert, Normal Affect, Normal Mood - Problem List & Annotations (1) Cellulitis SNOMED Code(s): 086532007 Code(s): L03.90 - CELLULITIS, UNSPECIFIED Status: Acute Current Visit: No Qualifiers: Site of cellulitis: extremity Site of cellulitis of extremity: axilla Laterality: right Qualified Code(s): L03.111 - Cellulitis of right axilla (2) Abscess SNOMED Code(s): 878144606 Code(s): L02.91 - CUTANEOUS ABSCESS, UNSPECIFIED Status: Acute Current Visit: Yes (3) Failure of outpatient treatment SNOMED Code(s): 661076804 Code(s): Z78.9 - OTHER SPECIFIED HEALTH STATUS Status: Acute Current Visit: Yes (4) Vertigo SNOMED Code(s): 075728039 Code(s): R42 - DIZZINESS AND GIDDINESS Status: Acute Current Visit: Yes (5) Generalized weakness SNOMED Code(s): 37296377 Code(s): R53.1 - WEAKNESS Status: Acute Current Visit: Yes (6) HTN (hypertension) SNOMED Code(s): 31437876 Code(s): I10 - ESSENTIAL (PRIMARY) HYPERTENSION Status: Chronic Current Visit: Yes Qualifiers: Hypertension type: essential hypertension Qualified Code(s): I10 - Essential (primary) hypertension (7) GERD (gastroesophageal reflux disease) SNOMED Code(s): 979295025 Code(s): K21.9 - GASTRO-ESOPHAGEAL REFLUX DISEASE WITHOUT ESOPHAGITIS Status: Chronic Current Visit: Yes Qualifiers: Esophagitis presence: esophagitis presence not specified Qualified Code(s) : K21.9 - Gastro-esophageal reflux disease without esophagitis (8) Breast cancer SNOMED Code(s): 985180827 Code(s): C50.919 - MALIGNANT NEOPLASM OF UNSP SITE OF UNSPECIFIED FEMALE BREAST Status: Chronic Current Visit: No Qualifiers: Breast location: upper outer quadrant of breast Estrogen receptor status: unspecified Patient sex: female Laterality: right Qualified Code(s): C50.411 - Malignant neoplasm of upper-outer quadrant of right female breast - Problem List Review Problem List Initiated/Reviewed/Updated: Yes - My Orders Last 24 Hours: My Active Orders 01/21/18 12:52 Patient Status [ADT] Routine Oxygen Therapy [RC] PRN Up With Assistance [RC] ASDIRECTED VTE/DVT Education [RC] PER UNIT ROUTINE Vital Signs [RC] Q4H Consult to Physician [CONS] Routine Acetaminophen [Tylenol] 650 mg PO Q4H PRN Morphine 2 mg IVPUSH Q2H PRN Ondansetron [Zofran] 4 mg IVPUSH Q4H PRN Blood Culture x2 Reflex Set [OM.PC] Stat Resuscitation Status Routine 01/21/18 12:53 Intake and Output [RC] QSHIFT Sequential Compression Device [OM.PC] Per Unit Routine 01/21/18 12:54 Notify Provider Consults [RC] ASDIRECTED 01/21/18 12:55 EKG Documentation Completion [RC] URGENT 01/21/18 13:00 Piperacillin/Tazobactam [Piperacil-Tazobact] 4.5 gm Sodium Chloride 0.9% [ Normal Saline] 100 ml IV Q6H Sodium Chloride 0.9% [Normal Saline] 1,000 ml IV ASDIRECTED Vancomycin Pharmacy to Dose [Pharmacy to Dose - Vancomycin] 1 dose .XX ASDIRECTED 01/21/18 13:34 CULTURE BLOOD [BC] Stat 01/21/18 13:37 Brain w wo Cont [MR] Routine 01/21/18 13:38 CULTURE BLOOD [BC] Stat 01/21/18 14:20 Benzonatate [Tessalon Perles] 100 mg PO TID PRN Codeine/guaiFENesin [Robitussin AC] 5 ml PO Q6H PRN 01/21/18 15:30 Vancomycin [Vancocin] 1 gm Sodium Chloride 0.9% [Normal Saline] 250 ml IV Q12H 01/21/18 Dinner NPO After Midnight [Nothing per Oral After Midnight Diet] [DIET] 01/21/18 Lunch Regular Diet [DIET] 01/23/18 02:30 VANCOMYCIN TROUGH [CHEM] Routine 01/23/18 05:11 BMP [BASIC METABOLIC PANEL,BMP] [CHEM] AM CBC WITH AUTO DIFF [HEME] AM 01/24/18 05:11 BMP [BASIC METABOLIC PANEL,BMP] [CHEM] AM CBC WITH AUTO DIFF [HEME] AM - Plan Plan:: This 52 year old female admitted with cellulitis with abscess to R axilla with vertigo and generalized weakness 1. Cellulitis and abscess to R axilla:Leukocytosis improved to 12,000 today. Continue Vancomycin and Zosyn. BC pending. I&D planned for this afternoon with Dr Montez. Continue IVF until post-op. 2. Vertigo: Much improved this morning, ambulating much better. Brain MRI with and without contrast negative. Continue to monitor due to improvement. 3. HTN: Monitor. Continue Losartan. ECHO reviewed from November 2017, WNL. EKG SR, rates 70s. 4. Cough: Dry hacking, improved with Tessalon perles PRN. CXR negative. 5. GERD: stable. Continue PPI VTE prophylaxis: SCDs for now. post-operatively will order Lovenox due to her increased risk of VTE with malignancy Dispo: 2-3 days pending improvement.
[2018-01-22] MEDS ORDERED: Bupivacaine 0.5% 30 ML SDV ONE (09:17)
[2018-01-22] MEDS ORDERED: Lidocaine 1% with EPINEPHrine 1:100,000 20 ML MDV ONE (11:01)
[2018-01-22] MEDS ORDERED: Midazolam 1 MG/ML 2 ML SDV ONE (11:50)
[2018-01-22] MEDS ORDERED: Propofol 200 MG/20 ML SDV ONE (11:50)
[2018-01-22] MEDS ORDERED: Ondansetron 4 MG/2 ML SDV ONE (11:50)
[2018-01-22] MEDS ORDERED: Naloxone 0.4 MG/ML Syringe ONE (11:50)
[2018-01-22] MEDS ORDERED: ePHEDrine 50 MG/ML SDV ONE (11:50)
[2018-01-22] MEDS ORDERED: Lidocaine 2% 5 ML SDV ONE (11:50)
[2018-01-22] MEDS ORDERED: fentaNYL 250 MCG/5 ML SDV ONE (11:51)
--- NOTE | 2018-01-22 12:15 | PCM.PREANE ---
Preanesthetic Assessment - Procedure Proposed Procedure: I and D of right axilla - Anesthesia/Transfusion/Family Hx Anesthesia History: Prior Anesthesia Without Reaction Family History of Anesthesia Reaction: No Transfusion History: No Prior Transfusion(s) Intubation History: Unknown - Review of Systems General: Other (nausea - s/p chemotherapy) Pulmonary: Cough (chronic, dry) Cardiovascular: No Symptoms Gastrointestinal: Nausea Neurological: Weakness (due to dehydration and effects of chemotherapy) - Physical Assessment NPO Status Date: 01/21/18 NPO Status Time: 23:00 O2 Sat by Pulse Oximetry: 97 Respiratory Rate: 18 Vital Signs: Last Vital Signs Temp 97.5 F 01/22/18 11:10 Pulse 77 01/22/18 11:10 Resp 18 01/22/18 11:10 BP 143/79 H 01/22/18 11:10 Pulse Ox 97 01/22/18 11:10 Height: 5 ft 3 in Weight: 177 lb 7.554 oz ASA Class: 3 Mental Status: Alert & Oriented x3 Airway Class: Mallampati = 1 Dentition: Reports: Normal Dentition, [place](s) Thyro-Mental Finger Breadths: 3 Mouth Opening Finger Breadths: 3 ROM/Head Extension: Full Lungs: Clear to Auscultation, Normal Respiratory Effort Cardiovascular: Regular Rate, Regular Rhythm, No Murmurs - Lab Values: Laboratory Last Values WBC 12.80 K/uL (4.0-11.0) H 01/22/18 05:18 RBC 3.66 M/uL (4.30-5.90) L 01/22/18 05:18 Hgb 10.8 g/dL (12.0-16.0) L 01/22/18 05:18 Hct 31.3 % (36.0-46.0) L 01/22/18 05:18 MCV 85.5 fL (80.0-98.0) 01/22/18 05:18 MCH 29.5 pg (27.0-32.0) 01/22/18 05:18 MCHC 34.5 g/dL (31.0-37.0) 01/22/18 05:18 RDW Std Deviation 42.0 fl (28.0-62.0) 01/22/18 05:18 RDW Coeff of Odilon 14 % (11.0-15.0) 01/22/18 05:18 Plt Count 239 K/uL (150-400) 01/22/18 05:18 MPV 8.80 fL (7.40-12.00) 01/22/18 05:18 Add Manual Diff YES 01/22/18 05:18 Neutrophils % (Manual) 71 % (48.0-80.0) 01/22/18 05:18 Band Neutrophils % 5 % 01/22/18 05:18 Lymphocytes % (Manual) 20 % (16.0-40.0) 01/22/18 05:18 Monocytes % (Manual) 3 % (0.0-15.0) 01/22/18 05:18 Basophils % (Manual) 1 % (0.0-1.5) 01/22/18 05:18 Nucleated RBC % 0.0 /100WBC 01/22/18 05:18 Absolute Seg Neuts 9.1 (1.4-5.7) H 01/22/18 05:18 Band Neutrophils # 0.6 01/22/18 05:18 Lymphocytes # (Manual) 2.6 (0.6-2.4) H 01/22/18 05:18 Monocytes # (Manual) 0.4 (0.0-0.8) 01/22/18 05:18 Basophils # (Manual) 0.1 (0.0-0.1) 01/22/18 05:18 Nucleated RBCs # 0 K/uL 01/22/18 05:18 Sodium 142 mmol/L (136-145) 01/22/18 05:18 Potassium 3.7 mmol/L (3.5-5.1) 01/22/18 05:18 Chloride 108 mmol/L (98-107) H 01/22/18 05:18 Carbon Dioxide 25.6 mmol/L (21.0-32.0) 01/22/18 05:18 BUN 8 mg/dL (7.0-18.0) 01/22/18 05:18 Creatinine 1.2 mg/dL (0.6-1.0) H 01/22/18 05:18 Est Cr Clr Drug Dosing 45.36 mL/min 01/22/18 05:18 Estimated GFR (MDRD) 47.2 ml/min 01/22/18 05:18 Glucose 103 mg/dL (74-106) 01/22/18 05:18 Calcium 8.7 mg/dL (8.5-10.1) 01/22/18 05:18 - Allergies Allergies/Adverse Reactions: Allergies Allergy/AdvReac Type Severity Reaction Status Date / Time azithromycin [From Zithromax] Allergy Dizziness Verified 12/11/17 10:03 - Blood Blood Available: No Product(s) Available: None - Anesthesia Plan Pre-Op Medication Ordered: None - Acknowledgements Anesthesia Type Planned: General Anesthesia Pt an Appropriate Candidate for the Planned Anesthesia: Yes Alternatives and Risks of Anesthesia Discussed w Pt/Guardian: Yes Pt/Guardian Understands and Agrees with Anesthesia Plan: Yes Additional Comments: will give zofran; plan LMA and spontaneous. PreAnesthesia Questionnaire HEENT History: Reports: Other (See Below) Other HEENT History: wears glasses/contacts Cardiovascular History: Reports: Hypertension. Denies: Afib, Blood Clots/VTE/ DVT, VT, SOB on Exertion, Stents Respiratory History: Reports: Other (See Below) (chronic cough, intermittently.) Gastrointestinal History: Reports: GERD Genitourinary History: Reports: None. Denies: Chronic Renal Insuffiency SLIDE MAKER History: Reports: Neurological History: Denies: CVA, Headaches, Chronic, Seizure, TIA Psychiatric History: Reports: Depression Endocrine/Metabolic History: Reports: Obesity/BMI 30+ Oncologic (Cancer) History: Reports: Breast - Past Surgical History Head Surgeries/Procedures: Reports: None Female Surgical History: Reports: Breast Biopsy Other Female Surgeries/Procedures: right breast lumpectomy with axillary lymph node biopsy (one node positive) - SUBSTANCE USE Smoking Status *Q: Never Smoker Second Hand Smoke Exposure: No Recreational Drug Use History: No - HOME MEDS Home Medications: Home Meds Famotidine 40 mg PO BEDTIME 12/03/17 [History] Fluticasone Propionate [Flonase Allergy Relief] 1 spray NASBOTH ASDIRECTED PRN 12/03/17 [History] Losartan Potassium 50 mg PO DAILY 12/03/17 [History] Multivitamin [Multivitamins] 1 tab PO DAILY 12/03/17 [History] [place]-3/DHA/Epa/Fish Oil [[place]-3 Fish Oil Softgel] 1 tab PO DAILY 12/03/17 [ History] - CURRENT (IN HOUSE) MEDS Current Meds: Current Medications Acetaminophen (Tylenol) 650 mg PO Q4H PRN PRN Reason: Pain (Mild 1-3)/fever Benzonatate (Tessalon Perles) 100 mg PO TID PRN PRN Reason: Cough Last Admin: 01/21/18 16:02 Dose: 100 mg Guaifenesin/Codeine Phosphate (Robitussin Ac) 5 ml PO Q6H PRN PRN Reason: Cough Sodium Chloride (Normal Saline) 1,000 mls @ 125 mls/hr IV ASDIRECTED [facility] Last Admin: 01/22/18 03:20 Dose: 125 mls/hr Piperacillin Sod/Tazobactam (Sod 4.5 gm/ Sodium Chloride) 100 mls @ 100 mls/hr IV Q6H [facility] Last Admin: 01/22/18 06:12 Dose: 100 mls/hr Vancomycin HCl 1 gm/ Sodium (Chloride) 250 mls @ 166.667 mls/hr IV Q12H [facility] Last Admin: 01/22/18 03:20 Dose: 166.667 mls/hr Morphine Sulfate (Morphine) 2 mg IVPUSH Q2H PRN PRN Reason: Pain (severe 7-10) Stop: 01/22/18 12:53 Last Admin: 01/21/18 23:06 Dose: 2 mg Ondansetron HCl (Zofran) 4 mg IVPUSH Q4H PRN PRN Reason: Nausea Vancomycin HCl (Pharmacy To Dose - Vancomycin) 1 dose .XX ASDIRECTED [facility] Discontinued Medications Bupivacaine HCl (Marcaine 0.5%) Confirm Administered Dose 30 ml .ROUTE .STK-MED ONE Stop: 01/22/18 09:18 Ephedrine Sulfate (Ephedrine Sulfate) Confirm Administered Dose 50 mg .ROUTE .STK-MED ONE Stop: 01/22/18 11:51 Fentanyl (Sublimaze) Confirm Administered Dose 250 mcg .ROUTE .STK-MED ONE Stop: 01/22/18 11:52 Gadobenate Dimeglumine (Multihance) 20 ml IVPUSH ONETIME STA Stop: 01/21/18 15:07 Last Admin: 01/21/18 15:34 Dose: 16 ml Sodium Chloride (Normal Saline) 1,000 mls @ 999 mls/hr IV .Bolus ONE Stop: 01/21/18 15:46 Last Admin: 01/21/18 15:54 Dose: 999 mls/hr Lidocaine (Xylocaine-Mpf 2%) Confirm Administered Dose 5 ml .ROUTE .STK-MED ONE Stop: 01/22/18 11:51 Lidocaine/Epinephrine (Xylocaine 1% With Epinephrine 1:100,000) Confirm Administered Dose 20 ml .ROUTE .STK-MED ONE Stop: 01/22/18 11:02 Midazolam HCl (Versed 1 Mg/Ml) Confirm Administered Dose 2 mg .ROUTE .STK-MED ONE Stop: 01/22/18 11:51 Naloxone HCl (Narcan) Confirm Administered Dose 0.4 mg .ROUTE .STK-MED ONE Stop: 01/22/18 11:51 Ondansetron HCl (Zofran) Confirm Administered Dose 8 mg .ROUTE .STK-MED ONE Stop: 01/22/18 11:51 Propofol (Diprivan 20 Ml) Confirm Administered Dose 200 mg .ROUTE .STK-MED ONE Stop: 01/22/18 11:51
[2018-01-22] MEDS ORDERED: ceFAZolin 1 GM Vial ONE (12:57)
[2018-01-22] MEDS ORDERED: fentaNYL 100 MCG/2 ML SDV IVPUSH PRN (13:46)
--- NOTE | 2018-01-22 13:50 | PCM.POSTAN ---
POST ANESTHESIA ASSESSMENT - MENTAL STATUS Mental Status: Alert, Oriented Free Text/Narrative:: Sore/pain in right side - expected due to lesion and treatment - VITAL SIGNS SaO2: 96 (NC) - RESPIRATORY Respiratory Status: Respiratory Rate WNL, Airway Patent, O2 Saturation Stable - CARDIOVASCULAR CV Status: Pulse Rate WNL, Blood Pressure Stable - GASTROINTESTINAL GI Status: No Symptoms - PAIN Pain Score: 5 (given narcotic) - POST OP HYDRATION Hydration Status: Adequate & Stable
[2018-01-22] MEDS ORDERED: Morphine 2 MG/ML Syringe IVPUSH PRN (15:20)
--- NOTE | 2018-01-22 15:26 | MR ---
EXAM DATE: 01/21/18 PATIENT'S AGE: 52 Patient: MARION ELIZONDO Facility: [place], [place] Site . Site : [id number] Study: MRI Head W/ and W/O Cont [id number]/[id number] 3:51:14 PM Ordering Physician: Gama Jacobs Final Report: INDICATION: 52 year-old female. Dizziness, weakness and history of breast cancer Technique : Volumetric 3 plane T1 weighted, T2 axial, FLAIR axial, diffusion axial, ADC map axial, susceptibility weighted axial and volumetric 3 plane postcontrast T1 weighted images acquired through the calvarium. FINDINGS: There is no restricted diffusion. Punctate focus of susceptibility is situated in the juxta cortical paramedian posterior left frontal lobe. The ventricles are normal. There is no pathologic intra-axial signal or pathologic extra-axial fluid collection. There is slight ectopia of the right cerebellar tonsil. Optic chiasm and pituitary are normal. Paranasal mastoid air cells are clear. Usual flow voids in the [place]. Intraorbital tissues are normal. Intracranial enhancement pattern is normal. IMPRESSION: 1. Slight ectopia of the right cerebellar tonsil has doubtful clinical significance. 2. Small focus of susceptibility insert in the high posterior paramedian left frontal lobe is suggestive of benign focal mineralization or other process such as occult vascular malformation (cavernoma). This finding has doubtful clinical significance. 3. No restricted diffusion, no pathologic intracranial enhancement and no acute intracranial finding. Dictated by Rian Ewing MD @ Jan 21 2018 4:01PM (Electronic Signature) Report Signed by Proxy. [email or web address]
--- NOTE | 2018-01-22 15:36 | PCM.OPNOTE ---
- General Post-Op/Procedure Note Date of Surgery/Procedure: 01/22/18 Operative Procedure(s): Incision and drainge right axillary abscess Findings: Excision of denuded skin that measured 4cm x 1 cm x1cm. Abscess cavity measured 2 cm across x 5 cm wide x 7 cm deep. Pre Op Diagnosis: Right axillary abscess Post-Op Diagnosis: same Anesthesia Technique: MAC Primary Surgeon: Janelle Montez EBL in mLs: 5 Condition: Good Free Text/Narrative:: Intake & Output 01/22/18 01/22/18 01/22/18 06:59 14:59 22:59 Intake Total 2520 700 Output Total 2500 Balance 20 700
--- NOTE | 2018-01-22 17:53 | OR ---
SURGEON: JIMI HERRERA MD DATE OF PROCEDURE: 01/22/2018 PREOPERATIVE DIAGNOSIS: Right axillary abscess. POSTOPERATIVE DIAGNOSIS: Right axillary abscess. PROCEDURE PERFORMED: Incision and drainage of right axillary abscess. ANESTHESIA: MAC. FLUIDS: See anesthesia record. ESTIMATED BLOOD LOSS: 10 mL. FINDINGS: Excision of denuded skin that measured 4 cm x 1 cm x 1 cm. Abscess cavity measured 2 cm across x 5 cm wide x 7 cm deep. COMPLICATIONS: None. INDICATIONS: The patient is a 52-year-old female, who several months ago underwent a right breast lumpectomy and sentinel lymph node biopsy at an outside facility. This was complicated by a postoperative hematoma in the sentinel lymph node biopsy site. The patient has not been feeling well for weeks and presented to her primary care provider's clinic earlier this week with fevers, chills, redness, and swelling of the right axilla. She was found to have a leukocytosis of 22,000. She was placed on clindamycin and sent to our oncologist office. On examination yesterday, she was found to have a large abscess along the inferior portion of the axillary hairline. She was admitted to the hospitalist service for IV fluid resuscitation and IV antibiotics. She was consented for an incision and drainage of the right axillary abscess today in the operating room. We discussed the procedure, expected perioperative course, the need for dressing changes afterwards as well as the risks of the procedure including bleeding, infection, or damage to surrounding structures. The patient verbalized understanding and wishes to proceed. PROCEDURE IN DETAIL: The patient was brought into the OR and placed on the OR table in supine position. A time-out was completed verifying the patient's name, age, date of , allergies, and procedure to be performed. Monitored anesthesia care was induced. The right axilla and chest were prepped and draped in usual standard fashion. I inspected the operative field. The patient appeared to have denuded skin overlying the abscess itself. Using a 15 blade, I made an elliptical incision measuring 4 cm x 1 cm over this area of denuded tissue. It was carried down to a depth of 1 cm. This piece of tissue was removed and sent for tissue culture. Once it was removed, I encountered a large abscess cavity containing a white purulent material. This material was sent for anaerobic and aerobic cultures as well as for Gram stain. I then explored the wound with my finger. The abscess tracked deep into the axilla down to almost the level of the chest wall. I broke up any loculations with my finger and irrigated the wound copiously. Once the normal saline ran clear, I then measured the wound. The abscess measured 2 cm across by 5 cm wide by 7 cm deep. Hemostasis was achieved with electrocautery. I then packed the wound with vaginal packing, soaked in an Ancef and normal saline mixture. This was packed into the wound until it was full. I then placed a dry 4 x 4 gauze over the top and secured this in place with Medipore tape. The patient tolerated the procedure well and was transferred to the PACU in stable condition. IVELISSE CHENG /[id number]
[2018-01-22] MEDS: oxyCODONE 5 MG Tab PO PRN (21:30)
[2018-01-23] MEDS: Piperacillin/Tazobactam 4.5 GM in Sodium Chloride 0.9% 100 ML IV SCH ×2 (00:35→06:01)
[2018-01-23] MEDS: oxyCODONE 5 MG Tab PO PRN (08:03)
--- NOTE | 2018-01-23 08:56 | PCM.SURGPN ---
- General Info Date of Service: 01/23/18 Date of Surgery/Procedure: 01/22/18 POD#: 1 Functional Status: Reports: Pain Controlled, Tolerating Diet, Ambulating - Review of Systems General: Reports: No Symptoms Pulmonary: Reports: No Symptoms Cardiovascular: Reports: No Symptoms Gastrointestinal: Reports: No Symptoms - Patient Data Vitals - Most Recent: Last Vital Signs Temp 36.2 C 01/23/18 07:46 Pulse 64 01/23/18 07:46 Resp 18 01/23/18 07:46 BP 130/72 01/23/18 07:46 Pulse Ox 96 01/23/18 07:46 Weight - Most Recent: 80.5 kg I&O - Last 24 Hours: Intake & Output 01/22/18 01/23/18 01/23/18 22:59 06:59 14:59 Intake Total 1449 780 Output Total 1870 1550 Balance -421 -770 Lab Results Last 24 Hrs: Laboratory Results - last 24 hr 01/23/18 01/23/18 01/23/18 Range/Units 02:41 02:41 02:41 WBC 8.54 (4.0-11.0) K/uL RBC 3.55 L (4.30-5.90) M/uL Hgb 10.4 L (12.0-16.0) g/dL Hct 30.4 L (36.0-46.0) % MCV 85.6 (80.0-98.0) fL MCH 29.3 (27.0-32.0) pg MCHC 34.2 (31.0-37.0) g/dL RDW Std Deviation 42.4 (28.0-62.0) fl RDW Coeff of Odilon 14 (11.0-15.0) % Plt Count 229 (150-400) K/uL MPV 8.80 (7.40-12.00) fL Neut % (Auto) 69.6 (48.0-80.0) % Lymph % (Auto) 19.8 (16.0-40.0) % [place] % (Auto) 8.7 (0.0-15.0) % Eos % (Auto) 1.2 (0.0-7.0) % Baso % (Auto) 0.7 (0.0-1.5) % Neut # (Auto) 6.0 H (1.4-5.7) K/uL Lymph # (Auto) 1.7 (0.6-2.4) K/uL [place] # (Auto) 0.7 (0.0-0.8) K/uL Eos # (Auto) 0.1 (0.0-0.7) K/uL Baso # (Auto) 0.1 (0.0-0.1) K/uL Nucleated RBC % 0.0 /100WBC Nucleated RBCs # 0 K/uL Sodium 141 (136-145) mmol/L Potassium 3.8 (3.5-5.1) mmol/L Chloride 106 (98-107) mmol/L Carbon Dioxide 24.5 (21.0-32.0) mmol/L BUN 9 (7.0-18.0) mg/dL Creatinine 1.3 H (0.6-1.0) mg/dL Est Cr Clr Drug Dosing 41.87 mL/min Estimated GFR (MDRD) 43.0 ml/min Glucose 102 (74-106) mg/dL Calcium 8.6 (8.5-10.1) mg/dL Vancomycin Trough 10.9 H (5.0-10.0) ug/mL Rashel Results Last 24 Hrs: Microbiology 01/22/18 13:22 Gram Stain - Preliminary Other - Axilla, Right 01/21/18 13:38 Aerobic Blood Culture - Preliminary Blood - Venous - Lab Draw NO GROWTH AFTER 1 DAY Anaerobic Blood Culture - Preliminary NO GROWTH AFTER 1 DAY 01/21/18 13:34 Aerobic Blood Culture - Preliminary Blood - Venous NO GROWTH AFTER 1 DAY Anaerobic Blood Culture - Preliminary NO GROWTH AFTER 1 DAY Med Orders - Current: Current Medications Acetaminophen (Tylenol) 650 mg PO Q4H PRN PRN Reason: Pain (Mild 1-3)/fever Last Admin: 01/23/18 00:43 Dose: 650 mg Benzonatate (Tessalon Perles) 100 mg PO TID PRN PRN Reason: Cough Last Admin: 01/21/18 16:02 Dose: 100 mg Fentanyl (Sublimaze) 50 mcg IVPUSH Q5M PRN PRN Reason: Pain Guaifenesin/Codeine Phosphate (Robitussin Ac) 5 ml PO Q6H PRN PRN Reason: Cough Piperacillin Sod/Tazobactam (Sod 4.5 gm/ Sodium Chloride) 100 mls @ 100 mls/hr IV Q6H [facility] Last Admin: 01/23/18 06:01 Dose: 100 mls/hr Vancomycin HCl 1 gm/ Sodium (Chloride) 250 mls @ 166.667 mls/hr IV Q12H [facility] Last Admin: 01/23/18 03:22 Dose: 166.667 mls/hr Morphine Sulfate (Morphine) 2 mg IVPUSH Q2H PRN PRN Reason: Pain Ondansetron HCl (Zofran) 4 mg IVPUSH Q4H PRN PRN Reason: Nausea Oxycodone HCl (Oxycodone) 5 - 10 mg PO Q4H PRN PRN Reason: Pain Last Admin: 01/23/18 08:03 Dose: 10 mg Vancomycin HCl (Pharmacy To Dose - Vancomycin) 1 dose .XX ASDIRECTED [facility] Discontinued Medications Bupivacaine HCl (Marcaine 0.5%) Confirm Administered Dose 30 ml .ROUTE .STK-MED ONE Stop: 01/22/18 09:18 Cefazolin Sodium (Ancef) Confirm Administered Dose 1 gm .ROUTE .STK-MED ONE Stop: 01/22/18 12:58 Ephedrine Sulfate (Ephedrine Sulfate) Confirm Administered Dose 50 mg .ROUTE .STK-MED ONE Stop: 01/22/18 11:51 Fentanyl (Sublimaze) Confirm Administered Dose 250 mcg .ROUTE .STK-MED ONE Stop: 01/22/18 11:52 Gadobenate Dimeglumine (Multihance) 20 ml IVPUSH ONETIME STA Stop: 01/21/18 15:07 Last Admin: 01/21/18 15:34 Dose: 16 ml Sodium Chloride (Normal Saline) 1,000 mls @ 125 mls/hr IV ASDIRECTED [facility] Last Admin: 01/22/18 03:20 Dose: 125 mls/hr Sodium Chloride (Normal Saline) 1,000 mls @ 999 mls/hr IV .Bolus ONE Stop: 01/21/18 15:46 Last Admin: 01/21/18 15:54 Dose: 999 mls/hr Lidocaine (Xylocaine-Mpf 2%) Confirm Administered Dose 5 ml .ROUTE .STK-MED ONE Stop: 01/22/18 11:51 Lidocaine/Epinephrine (Xylocaine 1% With Epinephrine 1:100,000) Confirm Administered Dose 20 ml .ROUTE .STK-MED ONE Stop: 01/22/18 11:02 Midazolam HCl (Versed 1 Mg/Ml) Confirm Administered Dose 2 mg .ROUTE .STK-MED ONE Stop: 01/22/18 11:51 Morphine Sulfate (Morphine) 2 mg IVPUSH Q2H PRN PRN Reason: Pain (severe 7-10) Stop: 01/22/18 12:53 Last Admin: 01/21/18 23:06 Dose: 2 mg Naloxone HCl (Narcan) Confirm Administered Dose 0.4 mg .ROUTE .STK-MED ONE Stop: 01/22/18 11:51 Ondansetron HCl (Zofran) Confirm Administered Dose 8 mg .ROUTE .STK-MED ONE Stop: 01/22/18 11:51 Propofol (Diprivan 20 Ml) Confirm Administered Dose 200 mg .ROUTE .STK-MED ONE Stop: 01/22/18 11:51 - Exam Wound/Incisions: Healing Well, Other (Wound has minimal erythema around it. The wound base appears clean. ) General: Alert, Oriented, Cooperative Lungs: Normal Respiratory Effort Cardiovascular: Regular Rate Skin: Warm, Dry, Intact - Problem List & Annotations (1) Abscess SNOMED Code(s): 224885038 Code(s): L02.91 - CUTANEOUS ABSCESS, UNSPECIFIED Status: Acute Current Visit: Yes (2) Failure of outpatient treatment SNOMED Code(s): 082443632 Code(s): Z78.9 - OTHER SPECIFIED HEALTH STATUS Status: Acute Current Visit: Yes (3) Cellulitis SNOMED Code(s): 654437660 Code(s): L03.90 - CELLULITIS, UNSPECIFIED Status: Acute Current Visit: No Qualifiers: Site of cellulitis: extremity Site of cellulitis of extremity: axilla Laterality: right Qualified Code(s): L03.111 - Cellulitis of right axilla (4) Breast cancer SNOMED Code(s): 760911864 Code(s): C50.919 - MALIGNANT NEOPLASM OF UNSP SITE OF UNSPECIFIED FEMALE BREAST Status: Chronic Current Visit: No Qualifiers: Breast location: upper outer quadrant of breast Estrogen receptor status: unspecified Patient sex: female Laterality: right Qualified Code(s): C50.411 - Malignant neoplasm of upper-outer quadrant of right female breast - Problem List Review Problem List Initiated/Reviewed/Updated: Yes - My Orders Last 24 Hours: Active Orders 24 hr Category Date Time Status BMP [BASIC METABOLIC PANEL,BMP] [CHEM] AM Lab 01/24/18 05:11 Ordered CBC WITH AUTO DIFF [HEME] AM Lab 01/24/18 05:11 Ordered CULTURE ANAEROBIC [RM] Routine Lab 01/22/18 13:22 Results CULTURE TISSUE [RM] Routine Lab 01/22/18 13:22 Received CULTURE WOUND [RM] Routine Lab 01/22/18 13:22 Results GRAM STAIN [RM] Routine Lab 01/22/18 13:22 Received GRAM STAIN [RM] Routine Lab 01/22/18 13:22 Results VANCOMYCIN TROUGH [CHEM] Timed Lab 01/25/18 14:30 Ordered Morphine Med 01/22/18 15:20 Active 2 mg IVPUSH Q2H PRN fentaNYL [Sublimaze] Med 01/22/18 13:46 Active 50 mcg IVPUSH Q5M PRN oxyCODONE Med 01/22/18 14:38 Active 5 - 10 mg PO Q4H PRN Medication Orders Acetaminophen (Tylenol) 650 mg PO Q4H PRN PRN Reason: Pain (Mild 1-3)/fever Last Admin: 01/23/18 00:43 Dose: 650 mg Benzonatate (Tessalon Perles) 100 mg PO TID PRN PRN Reason: Cough Last Admin: 01/21/18 16:02 Dose: 100 mg Fentanyl (Sublimaze) 50 mcg IVPUSH Q5M PRN PRN Reason: Pain Guaifenesin/Codeine Phosphate (Robitussin Ac) 5 ml PO Q6H PRN PRN Reason: Cough Piperacillin Sod/Tazobactam (Sod 4.5 gm/ Sodium Chloride) 100 mls @ 100 mls/hr IV Q6H [facility] Last Admin: 01/23/18 06:01 Dose: 100 mls/hr Infusion: 01/23/18 01:35 Dose: 100 mls/hr Admin: 01/23/18 00:35 Dose: 100 mls/hr Infusion: 01/22/18 19:31 Dose: 100 mls/hr Admin: 01/22/18 18:31 Dose: 100 mls/hr Infusion: 01/22/18 13:35 Dose: 100 mls/hr Admin: 01/22/18 12:35 Dose: 100 mls/hr Infusion: 01/22/18 07:12 Dose: 100 mls/hr Admin: 01/22/18 06:12 Dose: 100 mls/hr Infusion: 01/22/18 01:08 Dose: 100 mls/hr Admin: 01/22/18 00:08 Dose: 100 mls/hr Infusion: 01/21/18 19:23 Dose: 100 mls/hr Admin: 01/21/18 18:23 Dose: 100 mls/hr Infusion: 01/21/18 14:37 Dose: 100 mls/hr Admin: 01/21/18 13:37 Dose: 100 mls/hr Vancomycin HCl 1 gm/ Sodium (Chloride) 250 mls @ 166.667 mls/hr IV Q12H [facility] Last Admin: 01/23/18 03:22 Dose: 166.667 mls/hr Infusion: 01/22/18 16:43 Dose: 166.667 mls/hr Admin: 01/22/18 15:13 Dose: 166.667 mls/hr Infusion: 01/22/18 04:50 Dose: 166.667 mls/hr Admin: 01/22/18 03:20 Dose: 166.667 mls/hr Infusion: 01/21/18 18:03 Dose: 166.667 mls/hr Admin: 01/21/18 16:33 Dose: 166.667 mls/hr Morphine Sulfate (Morphine) 2 mg IVPUSH Q2H PRN PRN Reason: Pain Ondansetron HCl (Zofran) 4 mg IVPUSH Q4H PRN PRN Reason: Nausea Oxycodone HCl (Oxycodone) 5 - 10 mg PO Q4H PRN PRN Reason: Pain Last Admin: 01/23/18 08:03 Dose: 10 mg Admin: 01/22/18 21:30 Dose: 10 mg Vancomycin HCl (Pharmacy To Dose - Vancomycin) 1 dose .XX ASDIRECTED [facility] - Plan Plan (Free Text/Narrative):: Dressing instructions: 1) Remove all old dressings. Get in shower. Ok to get soap and water in wound. Pat dry. 2) Get a 4 x 4 gauze damp with normal saline. Pack in wound. 3) Cover wound with dry 4 x 4 gauze and secure in place with tape. 4) Change as often as needed to keep area dry. Change at least once a day. Patient appears to be healing well. She is ok for discharge frmo my standpoint. I would keep her on po antibiotics (Clindamycin) for five days. She can follow up with me in 1-2 weeks for a wound check. She should call my office if she has any issues prior to this.
[2018-01-23] MEDS ORDERED: Heparin Sodium 100 Units/ML 3 ML Syringe FLUSH ONE (12:08)
--- NOTE | 2018-01-23 12:25 | PCM.DCSUM1 ---
Discharge Summary - Discharge Data Discharge Date: 01/23/18 Discharge Disposition: Home, Self-Care 01 Condition: Good - Patient Summary/Data Operative Procedure(s) Performed: Incision and drainge right axillary abscess Consults: Consultations 01/21/18 12:52 Consult to Physician [CONS] Routine Hospital Course: 52 year old female with recently diagnose breast cancer, HTN, and GERD admitted directly from [facility] center for right axila abscess. She was treated with vancomycin and zosyn while in the hospital. Dr. Montez performed an I&D. She is being discharged home on clindamycin for 5 five days to have follow up with Dr. Montez. - Patient Instructions Diet: Regular Diet as Tolerated - Discharge Plan Prescriptions/Med Rec: oxyCODONE 5 mg PO Q6HR PRN #5 tablet PRN Reason: Pain Clindamycin HCl 300 mg PO Q6H #20 capsule Home Medications: Home Meds Famotidine 40 mg PO BEDTIME 12/03/17 [History] Fluticasone Propionate [Flonase Allergy Relief] 1 spray NASBOTH ASDIRECTED PRN 12/03/17 [History] Losartan Potassium 50 mg PO DAILY 12/03/17 [History] Multivitamin [Multivitamins] 1 tab PO DAILY 12/03/17 [History] [place]-3/DHA/Epa/Fish Oil [[place]-3 Fish Oil Softgel] 1 tab PO DAILY 12/03/17 [ History] Clindamycin HCl 300 mg PO Q6H #20 capsule 01/23/18 [Rx] oxyCODONE 5 mg PO Q6HR PRN #5 tablet 01/23/18 [Rx] Patient Handouts: Oxycodone tablets or capsules, Skin Abscess, [id number], Clindamycin capsules, Incision Care, Adult, [id number] Referrals: Janelle Montez MD [Physician] - - Patient Data Vitals - Most Recent: Last Vital Signs Temp 36.2 C 01/23/18 07:46 Pulse 64 01/23/18 07:46 Resp 18 01/23/18 07:46 BP 130/72 01/23/18 07:46 Pulse Ox 96 01/23/18 07:46 Weight - Most Recent: 80.5 kg I&O - Last 24 hours: Intake & Output 01/22/18 01/23/18 01/23/18 22:59 06:59 14:59 Intake Total 1449 780 100 Output Total 1870 1550 Balance -421 -770 100 Lab Results - Last 24 hrs: Laboratory Results - last 24 hr 01/23/18 01/23/18 01/23/18 Range/Units 02:41 02:41 02:41 WBC 8.54 (4.0-11.0) K/uL RBC 3.55 L (4.30-5.90) M/uL Hgb 10.4 L (12.0-16.0) g/dL Hct 30.4 L (36.0-46.0) % MCV 85.6 (80.0-98.0) fL MCH 29.3 (27.0-32.0) pg MCHC 34.2 (31.0-37.0) g/dL RDW Std Deviation 42.4 (28.0-62.0) fl RDW Coeff of Odilon 14 (11.0-15.0) % Plt Count 229 (150-400) K/uL MPV 8.80 (7.40-12.00) fL Neut % (Auto) 69.6 (48.0-80.0) % Lymph % (Auto) 19.8 (16.0-40.0) % [place] % (Auto) 8.7 (0.0-15.0) % Eos % (Auto) 1.2 (0.0-7.0) % Baso % (Auto) 0.7 (0.0-1.5) % Neut # (Auto) 6.0 H (1.4-5.7) K/uL Lymph # (Auto) 1.7 (0.6-2.4) K/uL [place] # (Auto) 0.7 (0.0-0.8) K/uL Eos # (Auto) 0.1 (0.0-0.7) K/uL Baso # (Auto) 0.1 (0.0-0.1) K/uL Nucleated RBC % 0.0 /100WBC Nucleated RBCs # 0 K/uL Sodium 141 (136-145) mmol/L Potassium 3.8 (3.5-5.1) mmol/L Chloride 106 (98-107) mmol/L Carbon Dioxide 24.5 (21.0-32.0) mmol/L BUN 9 (7.0-18.0) mg/dL Creatinine 1.3 H (0.6-1.0) mg/dL Est Cr Clr Drug Dosing 41.87 mL/min Estimated GFR (MDRD) 43.0 ml/min Glucose 102 (74-106) mg/dL Calcium 8.6 (8.5-10.1) mg/dL Vancomycin Trough 10.9 H (5.0-10.0) ug/mL VALERIANO Results - Last 24 hrs: Microbiology 01/22/18 13:22 Gram Stain - Preliminary Axilla, Right 01/22/18 13:22 Gram Stain - Preliminary Other - Axilla, Right 01/21/18 13:38 Aerobic Blood Culture - Preliminary Blood - Venous - Lab Draw NO GROWTH AFTER 1 DAY Anaerobic Blood Culture - Preliminary NO GROWTH AFTER 1 DAY 01/21/18 13:34 Aerobic Blood Culture - Preliminary Blood - Venous NO GROWTH AFTER 1 DAY Anaerobic Blood Culture - Preliminary NO GROWTH AFTER 1 DAY Med Orders - Current: Current Medications Acetaminophen (Tylenol) 650 mg PO Q4H PRN PRN Reason: Pain (Mild 1-3)/fever Last Admin: 01/23/18 00:43 Dose: 650 mg Benzonatate (Tessalon Perles) 100 mg PO TID PRN PRN Reason: Cough Last Admin: 01/21/18 16:02 Dose: 100 mg Fentanyl (Sublimaze) 50 mcg IVPUSH Q5M PRN PRN Reason: Pain Guaifenesin/Codeine Phosphate (Robitussin Ac) 5 ml PO Q6H PRN PRN Reason: Cough Piperacillin Sod/Tazobactam (Sod 4.5 gm/ Sodium Chloride) 100 mls @ 100 mls/hr IV Q6H [facility] Last Admin: 01/23/18 06:01 Dose: 100 mls/hr Vancomycin HCl 1 gm/ Sodium (Chloride) 250 mls @ 166.667 mls/hr IV Q12H [facility] Last Admin: 01/23/18 03:22 Dose: 166.667 mls/hr Morphine Sulfate (Morphine) 2 mg IVPUSH Q2H PRN PRN Reason: Pain Ondansetron HCl (Zofran) 4 mg IVPUSH Q4H PRN PRN Reason: Nausea Oxycodone HCl (Oxycodone) 5 - 10 mg PO Q4H PRN PRN Reason: Pain Last Admin: 01/23/18 08:03 Dose: 10 mg Vancomycin HCl (Pharmacy To Dose - Vancomycin) 1 dose .XX ASDIRECTED [facility] Discontinued Medications Bupivacaine HCl (Marcaine 0.5%) Confirm Administered Dose 30 ml .ROUTE .STK-MED ONE Stop: 01/22/18 09:18 Cefazolin Sodium (Ancef) Confirm Administered Dose 1 gm .ROUTE .STK-MED ONE Stop: 01/22/18 12:58 Ephedrine Sulfate (Ephedrine Sulfate) Confirm Administered Dose 50 mg .ROUTE .STK-MED ONE Stop: 01/22/18 11:51 Fentanyl (Sublimaze) Confirm Administered Dose 250 mcg .ROUTE .STK-MED ONE Stop: 01/22/18 11:52 Gadobenate Dimeglumine (Multihance) 20 ml IVPUSH ONETIME STA Stop: 01/21/18 15:07 Last Admin: 01/21/18 15:34 Dose: 16 ml Heparin Sodium (Porcine) (Heparin Lock Flush 100 Units/Ml) 300 unit FLUSH ASDIRECTED ONE Stop: 01/23/18 12:09 Last Admin: 01/23/18 12:21 Dose: 300 unit Sodium Chloride (Normal Saline) 1,000 mls @ 125 mls/hr IV ASDIRECTED [facility] Last Admin: 01/22/18 03:20 Dose: 125 mls/hr Sodium Chloride (Normal Saline) 1,000 mls @ 999 mls/hr IV .Bolus ONE Stop: 01/21/18 15:46 Last Admin: 01/21/18 15:54 Dose: 999 mls/hr Lidocaine (Xylocaine-Mpf 2%) Confirm Administered Dose 5 ml .ROUTE .STK-MED ONE Stop: 01/22/18 11:51 Lidocaine/Epinephrine (Xylocaine 1% With Epinephrine 1:100,000) Confirm Administered Dose 20 ml .ROUTE .STK-MED ONE Stop: 01/22/18 11:02 Midazolam HCl (Versed 1 Mg/Ml) Confirm Administered Dose 2 mg .ROUTE .STK-MED ONE Stop: 01/22/18 11:51 Morphine Sulfate (Morphine) 2 mg IVPUSH Q2H PRN PRN Reason: Pain (severe 7-10) Stop: 01/22/18 12:53 Last Admin: 01/21/18 23:06 Dose: 2 mg Naloxone HCl (Narcan) Confirm Administered Dose 0.4 mg .ROUTE .STK-MED ONE Stop: 01/22/18 11:51 Ondansetron HCl (Zofran) Confirm Administered Dose 8 mg .ROUTE .STK-MED ONE Stop: 01/22/18 11:51 Propofol (Diprivan 20 Ml) Confirm Administered Dose 200 mg .ROUTE .STK-MED ONE Stop: 01/22/18 11:51
== END 2018-01-23 12:27 | disposition home or self-care (01) | DRG 383 ==
LOC: EDSTATUS 12:41 → MW.MS 12:44
PROVIDERS: ADMIT Internal Medicine; ATTEND Internal Medicine
PROC: 0X940ZZ Drainage of Right Axilla, Open Approach (ICD-10-PCS; principal; 2018-01-22)
DX: L02.411 Cutaneous abscess of right axilla (principal); I10 Essential (primary) hypertension; K21.9 Gastro-esophageal reflux disease without esophagitis; C50.919 Malignant neoplasm of unspecified site of unspecified female breast; Z88.8 Allergy status to other drugs, medicaments and biological substances; Z79.899 Other long term (current) drug therapy; L03.111 Cellulitis of right axilla; R42 Dizziness and giddiness; R53.1 Weakness
CPT/HCPCS: 36415; 70553; 70553-26; 71045; 71045-26; 80048; 80202; 85025; 87040; 87070; 87075; 87205; 93005; A9270-GY; A9577; J0690; J1642; J2250; J2270; J2405; J2543; J2704; J3010; J3370; J7030; J7040; J7050